=== PATIENT | female | born 1985 | race Caucasian/White ===

== ENCOUNTER 2022-04-12 11:47 | Emergency (ER) | payer OTHER ==
[~2022-04-12] VITALS: Ht 162.6 cm; Wt 95.3 kg
[2022-04-12] MEDS ORDERED: ACETAMINOPHEN-1 EAC4 PO ×2 (13:58→14:20)
[2022-04-12] MEDS ORDERED: HYDROCODONE/APAP 5MG-325MG TAB PO ONE (14:30)
[2022-04-12 14:57] VITALS: BP 138/86
== END 2022-04-12 14:33 | disposition home or self-care (01) ==
LOC: ER 12:13
DX: S93.491A Sprain of other ligament of right ankle, initial encounter (principal); W07.XXXA Fall from chair, initial encounter; Y92.89 Other specified places as the place of occurrence of the external cause
CPT/HCPCS: 99284